=== PATIENT | female | born 1995 | race Caucasian/White ===

== ENCOUNTER 2019-08-23 16:19 | Outpatient (CLI) | payer MEDICAID ==
[2019-08-23 16:54] LABS: APPEARANCE,URINE SLIGHTLY-CLOUDY; BILIRUBIN,URINE NEGATIVE (NEGATIVE); COLOR,URINE YELLOW; GLUCOSE, URINE NEGATIVE (NEGATIVE); KETONES,URINE TRACE mg/dL (NEGATIVE); LEUKOCYTE ESTERASE,URINE NEGATIVE (NEGATIVE); NITRITE,URINE NEGATIVE (NEGATIVE); PROTEIN,URINE 30 mg/dL (NEGATIVE); URINE SPECIFIC GRAVITY 1.018; UROBILINOGEN,URINE NEGATIVE mg/dL (<2.0)
[2019-08-23 17:22] LABS: URINE AMPHETAMINES SCREEN NEGATIVE; URINE BARBITURATES SCREEN NEGATIVE; URINE BENZODIAZEPINES SCREEN NEGATIVE; URINE COCAINE SCREEN NEGATIVE; URINE MARIJUANA (THC) SCREEN NEGATIVE; URINE METHADONE SCREEN NEGATIVE; URINE PHENCYCLIDINE SCREEN NEGATIVE
[2019-08-23 17:47] LABS: ALBUMIN 3.4 g/dL (3.5-5.0); ALKALINE PHOSPHATASE 139 U/L (38-126); ASPARTATE AMINO TRANSFERASE 25 U/L (14-36); BILIRUBIN,TOTAL 0.5 mg/dL (0.2-1.3); TOTAL PROTEIN 6.2 g/dL (6.3-8.2)
--- NOTE | 2019-08-23 18:12 | Non Stress Test Report ---
Non Stress Test Datetime Report Generated by CPN: 08/23/2019 18:12 DEMOGRAPHIC EGA NST: 35.2 INDICATION Indication for Study (NST) Other: Provider Order MONITORING Monitor Explained: Monitor Explained; Test Explained; Patient Verbalized Understanding Time on Monitor: 08/23/2019 17:00 Time off Monitor: 08/23/2019 17:30 NST Duration: 30 NST INTERVENTIONS NST Interventions: None Physician Notified NST: Dr. Morris BABY A: [id number] Movement : Present Contraction Frequency : None FHR Baseline : 125 Accelerations : 15X15 Decelerations : None Variability : Moderate 6-25bpm NST Review: Meets Criteria for Reactive NST NST Review and Verified By : DIGNA EliasT Results: Reactive NST REPORT Report Trigger: Send Report
== END 2019-08-23 18:01 | disposition home or self-care (01) ==
LOC: LC 16:19
PROVIDERS: ATTEND Obstetrics & Gynecology Gynecology
DX: O26.893 Other specified pregnancy related conditions, third trimester (principal); L29.9 Pruritus, unspecified; Z3A.35 35 weeks gestation of pregnancy
CPT/HCPCS: 36415; 59025; 80076; 80307; 81005; 82239

== ENCOUNTER 2019-09-11 08:57 | Outpatient (CLI) | payer MEDICAID ==
--- NOTE | 2019-09-11 09:39 | Non Stress Test Report ---
Non Stress Test Datetime Report Generated by CPN: 09/11/2019 09:39 DEMOGRAPHIC EGA NST: 38.0 INDICATION Indication for Study (NST) Other: 2 vessel cord VITAL SIGNS Temperature - NST: 97.7 Pulse - NST: 93 RESP - NST: 18 NBPSYS NST: 138 NBPDIA NST: 77 MONITORING Monitor Explained: Monitor Explained; Test Explained; Patient Verbalized Understanding Time on Monitor: 09/11/2019 09:12 Time off Monitor: 09/11/2019 09:36 NST Duration: 24 NST INTERVENTIONS NST Interventions: PO Hydration Physician Notified NST: K. Rahman, CNM BABY A: [id number] BABY A Movement : Present Contraction Frequency : irregular FHR Baseline : 140 Accelerations : 15X15 Decelerations : None Variability : Moderate 6-25bpm NST Review: Meets Criteria for Reactive NST (Annotations: Data stored by CPN on behalf of user) NST Review: Meets Criteria for Reactive NST NST Review and Verified By : Nargis Nino [facility] NST Results: Reactive NST REPORT Report Trigger: Send Report
--- NOTE | 2019-09-11 10:41 | RADIOLOGY REPORT (SQ) ---
EXAM DESCRIPTION: U/S OB LIMITED IMAGES COMPLETED DATE/TIME: 09/11/2019 10:21 am REASON FOR STUDY: GRACIE for 2VC COMPARISON: None. TECHNIQUE: Limited transabdominal grayscale ultrasound for evaluation of specific requested obstetri alec parameters. LIMITATIONS: None. FINDINGS: CERVICAL LENGTH: Not assessed. GRACIE: 15.9 cm. LVP: 10.7 x 7.3 cm. FHR: 127 beats per minute. PRESENTATION: Vertex. PLACENTA: Anterior ANATOMY: Not assessed. OTHER: No other findings. IMPRESSION: LIMITED OBSTETRICAL ULTRASOUND WITH MEASURED PARAMETERS DELINEATED ABOVE. Trimester of : Third trimester - 28 weeks to delivery. TECHNICAL DOCUMENTATION: JOB ID: [id number] 2010 [employer]- All Rights Reserved Reading location - IP/workstation name: [email or web address]
== END 2019-09-11 10:32 | disposition home or self-care (01) ==
LOC: LC 08:57
PROVIDERS: ATTEND Obstetrics & Gynecology
DX: O26.893 Other specified pregnancy related conditions, third trimester (principal); Z3A.37 37 weeks gestation of pregnancy
CPT/HCPCS: 59025; 76815

== ENCOUNTER 2019-09-17 09:58 | Outpatient (CLI) | payer MEDICAID ==
--- NOTE | 2019-09-17 10:45 | Non Stress Test Report ---
Non Stress Test Datetime Report Generated by CPN: 09/17/2019 10:45 DEMOGRAPHIC EGA NST: 38.6 INDICATION Indication for Study (NST) Other: 2 VC MONITORING Monitor Explained: Monitor Explained; Test Explained; Patient Verbalized Understanding Time on Monitor: 09/17/2019 10:07 Time off Monitor: 09/17/2019 10:32 NST Duration: 25 NST INTERVENTIONS NST Interventions: PO Hydration; Reposition Patient BABY A: [id number] BABY A Movement : Present Contraction Frequency : 0 FHR Baseline : 135 Accelerations : 15X15 Decelerations : None Variability : Moderate 6-25bpm NST Review: Meets Criteria for Reactive NST NST Review and Verified By : Nargis Camp [facility] NST Results: Reactive NST REPORT Report Trigger: Send Report
--- NOTE | 2019-09-17 11:48 | RADIOLOGY REPORT (SQ) ---
EXAM DESCRIPTION: U/S OB LIMITED IMAGES COMPLETED DATE/TIME: 09/17/2019 10:48 am REASON FOR STUDY: 38+5 2 vessel cord for GRACIE COMPARISON: Ultrasound from 12/12/2019. TECHNIQUE: Limited transabdominal grayscale ultrasound for evaluation of specific requested obstetri alec parameters. LIMITATIONS: None. FINDINGS: CERVICAL LENGTH: Unable to visualize. GRACIE: 10.2 cm. LVP: 5.6 x 4.4 cm. FHR: 150 beats per minute. PRESENTATION: Vertex. PLACENTA: Anterior ANATOMY: Not assessed OTHER: No other findings. IMPRESSION: LIMITED OBSTETRICAL ULTRASOUND WITH MEASURED PARAMETERS DELINEATED ABOVE. Trimester of : Third trimester - 28 weeks to delivery. TECHNICAL DOCUMENTATION: JOB ID: [id number] 2010 [employer]- All Rights Reserved Reading location - IP/workstation name: [email or web address]
== END 2019-09-17 11:17 | disposition home or self-care (01) ==
LOC: LC 09:58
PROVIDERS: ATTEND Obstetrics & Gynecology
DX: Z34.93 Encounter for supervision of normal pregnancy, unspecified, third trimester (principal); Z3A.38 38 weeks gestation of pregnancy
CPT/HCPCS: 59025; 76815